=== PATIENT | female | born 1945 | race Two or more races ===

== ENCOUNTER → 2024-09-17 | Outpatient (CLI) | payer MEDICARE, MEDICAID, SELFPAY ==
[2024-09-17 09:55] LABS: Basophils # (Auto) 0.1 Thou/mm3 (0.0-0.2); Basophils % (Auto) 1 % (0-2.5); Eosinophils # (Auto) 0.3 Thou/mm3 (0.0-0.5); Eosinophils % (Auto) 5 % (0-10); Hemoglobin 11.5 g/dL (12.0-16.0); Immature Granulocytes % (Auto) 0 % (0-0); Immature Granulocytes Auto 0.03 Thou/mm3 (0.00-0.00); Lymphocytes % (Auto) 30 % (10-50); Mean Corpuscular HGB Conc 33.8 g/dl (31.0-37.0); Mean Corpuscular Hemoglobin 29.5 pg (25.0-35.0); Mean Corpuscular Volume 87 fL (80-100); Monocytes # (Auto) 0.5 Thou/mm3 (0.0-0.8); Monocytes % (Auto) 7 % (0-12); Neutrophils # (Auto) 3.8 Thou/mm3 (1.8-7.7); Neutrophils % (Auto) 57 % (37-80); Nucleated Red Blood Cell % 0 /100 WBC (0); Platelet Count 216 Thou/mm3 (140-440); RDW Standard Deviation 42.4 fL (36.4-46.3); White Blood Count 6.7 Thou/mm3 (3.6-11.0)
[2024-09-17 09:57] LABS: Glucose Estimated Average 180 mg/dL (80-131); Hemoglobin A1C 7.9 % Hgb (4.8-6.0)
[2024-09-17 10:04] LABS: Alanine Aminotransferase 11 U/L (10-49); Albumin, Serum 4.7 gm/dL (3.4-4.8); Albumin/Globulin Ratio 2.1 (1.2-2.2); Alkaline Phosphatase 60 U/L (46-116); Anion Gap 11 (7-16); Aspartate Amino Transferase 17 U/L (0-34); BUN/Creatinine Ratio 15 Ratio (12-20); Bilirubin,Total 1.1 mg/dL (0.3-1.2); Blood Urea Nitrogen 18 mg/dL (9-23); Carbon Dioxide 29.2 mMol/L (20.0-31.0); Cardiac Risk Estimate 3.7 RATIO (3.7-5.6); Chloride 102 mMol/L (98-107); Cholesterol 179 mg/dL (132-200); Creatinine (Component) 1.2 mg/dL (0.6-1.3); Globulin 2.2 gm/dL (2.3-3.5); Glucose 221 mg/dL (74-106); HDL Cholesterol 48 mg/dL (40-60); LDL Cholesterol,Calculated 82 mg/dL (0-130); Osmolality,Calculated 292 (275-295); Potassium 4.2 mMol/L (3.4-5.1); Sodium 142 mMol/L (136-145); Total Protein 6.9 gm/dL (5.7-8.2); Triglycerides 244 mg/dL (30-150); eGFR 46 See Note
[2024-09-17 10:24] LABS: Creatinine MALB Rnd Ur 69 mg/dL (30-125); Microalbumin Creat Ratio 4 mg/gCrea (<30); Microalbumin, Random Urine 3 mg/L (0-300)
== END | disposition home or self-care (01) ==
LOC: COPL 08:04
PROVIDERS: PCP Family Medicine; Referring Provider Family Medicine; Visit Provider Family Medicine
DX: E11.65 Type 2 diabetes mellitus with hyperglycemia (principal)
CPT/HCPCS: 36415; 80053; 80061; 82043; 82570; 83036; 85025

== ENCOUNTER → 2024-12-29 | Outpatient (CLI) | payer MEDICARE, MEDICAID, SELFPAY ==
[2024-12-29 09:26] LABS: Basophils # (Auto) 0.1 Thou/mm3 (0.0-0.2); Basophils % (Auto) 1 % (0-2.5); Eosinophils # (Auto) 0.3 Thou/mm3 (0.0-0.5); Eosinophils % (Auto) 5 % (0-10); Hematocrit 35.6 % (36.0-46.0); Hemoglobin 11.9 g/dL (12.0-16.0); Immature Granulocytes Auto 0.01 Thou/mm3 (0.00-0.00); Lymphocytes # (Auto) 2.2 Thou/mm3 (1.0-4.8); Lymphocytes % (Auto) 30 % (10-50); Mean Corpuscular HGB Conc 33.4 g/dl (31.0-37.0); Mean Corpuscular Hemoglobin 29.2 pg (25.0-35.0); Mean Corpuscular Volume 88 fL (80-100); Monocytes # (Auto) 0.5 Thou/mm3 (0.0-0.8); Monocytes % (Auto) 7 % (0-12); Neutrophils # (Auto) 4.4 Thou/mm3 (1.8-7.7); Neutrophils % (Auto) 58 % (37-80); Nucleated Red Blood Cell # 0.00 Thou/mm3 (0.00-0.00); Nucleated Red Blood Cell % 0 /100 WBC (0); Platelet Count 204 Thou/mm3 (140-440); RDW Standard Deviation 42.7 fL (36.4-46.3); Red Blood Count 4.07 Miln/mm3 (4.00-5.20); White Blood Count 7.6 Thou/mm3 (3.6-11.0)
[2024-12-29 09:41] LABS: Glucose Estimated Average 194 mg/dL (80-131); Hemoglobin A1C 8.4 % Hgb (4.8-6.0)
[2024-12-29 09:54] LABS: Ferritin 50 ng/mL (7.3-270.7); Iron 61 mcg/dL (50-170); Percent Iron Saturation 18 % (20-55); Total Iron Binding Capacity 329 mcg/dL (250-425); Unsaturated Iron Binding 268 (225-295)
[2024-12-29 10:13] LABS: Alanine Aminotransferase 9 U/L (10-49); Albumin, Serum 4.7 gm/dL (3.4-4.8); Albumin/Globulin Ratio 2.2 (1.2-2.2); Alkaline Phosphatase 60 U/L (46-116); Anion Gap 10 (7-16); Aspartate Amino Transferase 19 U/L (0-34); BUN/Creatinine Ratio 14 Ratio (12-20); Bilirubin,Total 0.9 mg/dL (0.3-1.2); Blood Urea Nitrogen 18 mg/dL (9-23); Calcium 9.9 mg/dL (8.3-10.6); Calcium (Corrected) 9.9 mg/dL (8.5-10.1); Carbon Dioxide 29.5 mMol/L (20.0-31.0); Cardiac Risk Estimate 4.6 RATIO (3.7-5.6); Chloride 100 mMol/L (98-107); Cholesterol 175 mg/dL (132-200); Creatinine (Component) 1.3 mg/dL (0.6-1.3); Globulin 2.1 gm/dL (2.3-3.5); Glucose 190 mg/dL (74-106); HDL Cholesterol 38 mg/dL (40-60); LDL Cholesterol,Calculated 65 mg/dL (0-130); Osmolality,Calculated 284 (275-295); Potassium 4.9 mMol/L (3.4-5.1); Sodium 139 mMol/L (136-145); Thyroid Stimulating Hormone 2.03 uIU/mL (0.55-4.78); Total Protein 6.8 gm/dL (5.7-8.2); Triglycerides 361 mg/dL (30-150); eGFR 42 See Note
== END | disposition home or self-care (01) ==
LOC: COPL 08:03
PROVIDERS: PCP Family Medicine; Referring Provider Student in an Organized Health Care Education/Training Program; Visit Provider Student in an Organized Health Care Education/Training Program
DX: E11.65 Type 2 diabetes mellitus with hyperglycemia (principal); E11.22 Type 2 diabetes mellitus with diabetic chronic kidney disease; I12.9 Hypertensive chronic kidney disease with stage 1 through stage 4 chronic kidney disease, or unspecified chronic kidney disease; N18.31 Chronic kidney disease, stage 3a
CPT/HCPCS: 36415; 80053; 80061; 82728; 83036; 83540; 83550; 84443; 85025

== ENCOUNTER 2025-04-09 10:02 | Day surgery (SDC) | payer MEDICARE, MEDICAID, SELFPAY ==
--- NOTE | 2025-04-08 07:00 | EKG_ITS ---
[facility] Test Date: 2025-04-08 Pat Name: LETICIA TODD Department: Room: - Gender: Female [employer] System Dispatcher: ANNMARIE : 1945 Requested By: Tyrell Michelle Order Number: [id number] Reading MD: Tyrell Michelle Measurements Intervals [place] Rate: 63 P: 63 ID: [id number] QRS: 44 QRSD: 82 T: 69 QT: 403 QTc: 413 Interpretive Statements SINUS RHYTHM Compared to ECG 03/04/2021 11:25:06 Myocardial infarct finding no longer present /[id number]/[id number].pdf
[2025-04-08 12:21] LABS: Basophils # (Auto) 0.1 Thou/mm3 (0.0-0.2); Basophils % (Auto) 1 % (0-2.5); Eosinophils # (Auto) 0.3 Thou/mm3 (0.0-0.5); Eosinophils % (Auto) 3 % (0-10); Hematocrit 32.1 % (36.0-46.0); Hemoglobin 10.7 g/dL (12.0-16.0); Immature Granulocytes Auto 0.03 Thou/mm3 (0.00-0.00); Lymphocytes # (Auto) 2.2 Thou/mm3 (1.0-4.8); Lymphocytes % (Auto) 28 % (10-50); Mean Corpuscular HGB Conc 33.3 g/dl (31.0-37.0); Mean Corpuscular Hemoglobin 30.9 pg (25.0-35.0); Mean Corpuscular Volume 93 fL (80-100); Monocytes # (Auto) 0.6 Thou/mm3 (0.0-0.8); Monocytes % (Auto) 7 % (0-12); Neutrophils # (Auto) 4.8 Thou/mm3 (1.8-7.7); Neutrophils % (Auto) 60 % (37-80); Nucleated Red Blood Cell # 0.00 Thou/mm3 (0.00-0.00); Nucleated Red Blood Cell % 0 /100 WBC (0); Platelet Count 207 Thou/mm3 (140-440); RDW Standard Deviation 49.0 fL (36.4-46.3); Red Blood Count 3.46 Miln/mm3 (4.00-5.20); White Blood Count 8.0 Thou/mm3 (3.6-11.0)
[2025-04-08 12:28] LABS: INR 1.0 (0.9-1.3); Partial Thromboplastin Time 29.4 Seconds (22.0-36.0); Prothrombin Time 11.0 Seconds (9.0-12.2)
[2025-04-08 12:30] LABS: Anion Gap 8 (7-16); Blood Urea Nitrogen 25 mg/dL (9-23); Carbon Dioxide 28.9 mMol/L (20.0-31.0); Chloride 102 mMol/L (98-107); Creatinine (Component) 1.4 mg/dL (0.6-1.3); Potassium 5.4 mMol/L (3.4-5.1); Sodium 139 mMol/L (136-145)
[2025-04-08 12:31] LABS: BUN/Creatinine Ratio 18 Ratio (12-20); Calcium 9.9 mg/dL (8.3-10.6); Glucose 236 mg/dL (74-106); Osmolality,Calculated 289 (275-295); eGFR 39 See Note
[2025-04-09] VITALS (14 sets, daily range): BP systolic 116–135; BP diastolic 57–72; PULSE 64–89; RESP 13–20; TEMP 36.3–37.2; O2SAT 96–99
--- NOTE | 2025-04-09 14:19 | PC.NURSE ---
patient request to have discharge instructions in lithuanian only since her daughter speaks englisn and will be the person caring for her
--- NOTE | 2025-04-09 16:05 | PC.NURSE ---
1250 patient is awake, alert, breathing unlabored, s/p LHC and RHC by Dr. Navarro, TR band to right wrist, no bleeding or hematoma noted, report received from Nelda TRUJILLO, patient to recover until 1hr post TR band removal. 1316 report given to Mary Anne TRUJILLO, patient does not want to eat food tray 1350 report received from mary anne TRUJILLO, 3ml air has been removed from TR band 1440 TR band removed, no bleeding or hematoma noted 1550 patient is awake alert, breathing unlabored, dressing to right groin and wrist dry with no bleeding or hematoma, fingers to right hand and toes to right foot pink with good circulation. discharge instructions given to patient and daughter, patient discharged home in wheelchair with all belongings. dc instructions given in latvian to family member per pt request.
--- NOTE | 2025-04-09 19:25 | ESOP_ITS ---
RE: LETICIA TODD : 1945 DATE OF OPERATION: 04/09/2025 PROCEDURES PERFORMED: 1. Diagnostic right and left heart cardiac catheterization, selective coronary angiogram, left ventriculogram CPT 62131. 2. Conscious sedation, 30 minute duration. 3. Ultrasound-guided access, right radial artery and right femoral vein. DIAGNOSES: 1. Severe critical aortic stenosis. 2. Angina pectoris. 3. Coronary artery disease. INDICATION: Patient is a 79-year-old female with a past medical history of hypertension, diabetes mellitus, hypercholesterolemia has been having episodes of symptomatic severe aortic stenosis. The patient has been having shortness of breath on exertion predominant symptom, but no significant chest pain, mostly shortness of breath on exertion and cardiac echo showed severe aortic stenosis, aortic velocity increased to more than 4 meter per second with dizziness and also near syncope. Hence coronary angiogram and cardiac catheterization recommended for further assessment. PROCEDURE DETAIL: Patient was brought to the cardiac catheterization laboratory. She was given 2 mg Versed, 50 mcg fentanyl for conscious sedation. Right radial approach was taken for left heart catheterization. Right radial artery cannulated by micropuncture technique and a 5-[place] Glidesheath introduced. Local anesthesia is given. Right femoral vein was cannulated by micropuncture technique and an 8-[place] sheath is introduced. Radial cocktail was given after radial artery cannulation. Next right heart catheterization performed with Petoskey-Yin catheter, right heart pressures measured. Left heart catheterization performed by a TIG-4 diagnostic catheter using a Ford guidewire, able to cross the aortic valve, left ventricular pressure is recorded, angiogram was performed. Selective right and left coronary angiogram performed by TIG-4 5-[place] diagnostic catheter. Patient tolerated the procedure well with no complication. Cardiac catheterization showed the following finding: Hemodynamics were as follows: Right atrial pressure was found to be normal at 2 mmHg. Right ventricle pressure 16/2, pulmonary artery pressure is 18/3 mmHg, mean pressure was 8 mmHg. Pulmonary artery wedge pressure is 2 mmHg. Left ventricle pressure is 175 systolic over 1, end-diastolic pressure is 18. Aortic pressure is 98/74. There is a peak gradient of approximately 60 mmHg across the aortic valve. Mean gradient is 42 mmHg. Aortic valve area 0.6 square centimeter. Cardiac output was 4.5 liters per minute. Left ventriculogram showed normal left ventricular wall motion, ejection fraction 70%. Coronary angiogram showed following findings: Right coronary artery is large and dominant showed some plaque in the proximal mid segment, no significant stenosis. Right coronary artery has a lower origin. Left coronary system: Left main coronary artery is normal. There is evidence of mild calcification. Left main free of disease. Left circumflex artery is large and gives off obtuse marginal branches, has some calcification, no stenosis. Left anterior descending artery is a small vessel, 2.5 mm vessel in proximal segment after septal with a 90% stenosis, long lesion. Subsequently mid and distal segments show evidence of a 75-80% stenosis, moderate disease with mild calcification. SUMMARY FINDINGS: 1. Severe and critical aortic valve stenosis with peak gradient of 60 mmHg, mean gradient 42 mmHg, aortic valve area 0.6 square centimeter. 2. Normal left ventricular function. 3. Single vessel coronary artery disease. There is evidence of a small left anterior descending artery showing 90% stenosis proximal LAD and moderate to severe 80% stenosis distal left anterior descending artery. RECOMMENDATION: The patient is mostly symptomatic from aortic stenosis, shortness of breath and dizziness and near syncope, recommended to have transcatheter aortic valve replacement procedure first and possibly perform PCI stent on the left anterior descending artery after the TAVR procedure. I feel that the CAD stent placement is not necessary at this time since she is not symptomatic from CAD, also the risk is high doing a PCI in a severe and critical aortic stenosis patient with higher complication rate. We will discuss this with TAVR Team and will determine whether we should do PCI of the left anterior descending artery first or TAVR subsequently and vice versa. DT: 18:55:14 TT: 19:24:00 Ref: [id number] - TID: [id number] [facility]
== END 2025-04-09 15:50 | disposition home or self-care (01) ==
PROVIDERS: PCP Student in an Organized Health Care Education/Training Program; Referring Provider Internal Medicine Cardiovascular Disease; Visit Provider Internal Medicine Cardiovascular Disease
PROC: (CPT 93460; principal; 2025-04-09 11:30)
DX: I35.0 Nonrheumatic aortic (valve) stenosis (principal); I25.118 Atherosclerotic heart disease of native coronary artery with other forms of angina pectoris; E11.9 Type 2 diabetes mellitus without complications; E78.00 Pure hypercholesterolemia, unspecified; I10 Essential (primary) hypertension; Z01.810 Encounter for preprocedural cardiovascular examination; Z79.899 Other long term (current) drug therapy; Z79.84 Long term (current) use of oral hypoglycemic drugs
CPT/HCPCS: 93460; 36415; 80048; 84520; 85025; 85610; 85730; 93005; 99152; 99153; A4649; C1769; C1887; C1894; J0168; J0461; J1643; J2250; J2312; J2371; J3010; J3490; Q9967; J2305

== ENCOUNTER → 2025-04-23 | Outpatient (CLI) | payer MEDICARE, MEDICAID, SELFPAY ==
[2025-04-23 10:31] LABS: Glucose Estimated Average 154 mg/dL (80-131); Hemoglobin A1C 7.0 % Hgb (4.8-6.0)
[2025-04-23 10:35] LABS: Albumin, Serum 5.2 gm/dL (3.4-4.8); Anion Gap 10 (7-16); BUN/Creatinine Ratio 18 Ratio (12-20); Blood Urea Nitrogen 21 mg/dL (9-23); Calcium 10.0 mg/dL (8.3-10.6); Calcium (Corrected) 10.0 mg/dL (8.5-10.1); Carbon Dioxide 29.0 mMol/L (20.0-31.0); Cardiac Risk Estimate 3.2 RATIO (3.7-5.6); Chloride 104 mMol/L (98-107); Cholesterol 181 mg/dL (132-200); Creatinine (Component) 1.2 mg/dL (0.6-1.3); Glucose 189 mg/dL (74-106); HDL Cholesterol 56 mg/dL (40-60); LDL Cholesterol,Calculated 76 mg/dL (0-130); Osmolality,Calculated 292 (275-295); Phosphorous 3.7 mg/dL (2.4-5.1); Potassium 4.3 mMol/L (3.4-5.1); Sodium 143 mMol/L (136-145); Triglycerides 247 mg/dL (30-150); eGFR 46 See Note
== END | disposition home or self-care (01) ==
LOC: COPL 09:25
PROVIDERS: PCP Student in an Organized Health Care Education/Training Program; Referring Provider Student in an Organized Health Care Education/Training Program; Visit Provider Student in an Organized Health Care Education/Training Program
DX: E78.00 Pure hypercholesterolemia, unspecified (principal); E11.65 Type 2 diabetes mellitus with hyperglycemia; N18.31 Chronic kidney disease, stage 3a
CPT/HCPCS: 36415; 80061; 80069; 83036